=== PATIENT | male | born 1980 | race Caucasian/White ===

== ENCOUNTER 2024-05-29 07:28 | Observation (INO) ==
--- NOTE | 2024-05-29 07:34 | Emergency Department Note ---
History of Present Illness General Chief complaint: Abdominal Pain Stated complaint: RIGHT SIDED ABDOMINAL PAIN Time Seen by Provider: 05/29/24 07:33 History of Present Illness This is a 44-year-old male who presents to the emergency department via private vehicle with complaints of "right-sided abdominal pain". Patient states that last evening around 5:30 PM he began with right lower quadrant abdominal pain. He then went to dinner and noted continuation of symptoms. He has a decreased appetite. Patient denies any fevers, chills, nausea or vomiting. No chest pain or shortness of breath. Patient does note that when he presses the right lower quadrant the pain increases and also he notes referred pain to the right lower quadrant when he palpates the left lower quadrant. The patient states he is otherwise healthy. He denies any pertinent past medical history, surgeries or allergies. No history of abdominal surgeries. Home Medications Medication Instructions Recorded Confirmed Type cholecalciferol (vitamin D3) 25 25 mcg PO DAILY 05/29/24 05/29/24 History mcg (1,000 unit) tablet (Vitamin D3) Allergies Allergy/AdvReac Type Severity Reaction Status Date / Time No Known Allergies Allergy Unverified 05/29/24 09:35 Past Med/Surg History Problem List Abdominal pain, RLQ (Acute) Acute appendicitis (Acute) No pertinent past medical history Social History Smoking Status: Never smoker Preferred Language: [place] Feels Safe at Home: Yes Review of Systems A total of 10 systems reviewed and were otherwise negative Physical Exam Vital Signs Vital Signs - 24 hr 05/29/24 07:39 05/29/24 11:04 05/29/24 11:32 Temperature 37.3 C 37.3 C Temperature Source Oral Oral Pulse Rate 105 H Pulse Rate [Apical] 83 Pulse Rate [Left Finger] 90 Pulse Rhythm Regular Pulse Rhythm [Apical] Regular Pulse Rhythm [Left Finger] Regular Pulse Strength Normal Pulse Strength [Apical] Normal Pulse Strength [Left Finger] Normal Respiratory Rate 18 18 20 Respiratory Effort / Characteristics Non-Labored Spontaneous Non-Labored Non-Labored Respiratory Depth Normal Normal Normal Respiratory Pattern Regular Regular Regular Blood Pressure 170/105 H Blood Pressure [Right Arm] 148/92 H 173/105 H Blood Pressure Mean 126 Blood Pressure Mean [Right Arm] 110 127 Blood Pressure Position Sitting Blood Pressure Position [Right Arm] Sitting Pulse Oximetry 93 98 98 Oxygen Delivery Method Room Air Room Air Room Air Oxygen Flow Rate Sepsis Recent Fever Within 48 Hours No Sepsis New/Unexplained Change in Mental Status No Sepsis Action Taken by Nursing No Action Required 05/29/24 13:06 05/29/24 13:15 05/29/24 13:25 Temperature 36.4 C L Temperature Source Temporal Artery Scan Pulse Rate Pulse Rate [Apical] 94 H 91 H 83 Pulse Rate [Left Finger] Pulse Rhythm Pulse Rhythm [Apical] Regular Regular Regular Pulse Rhythm [Left Finger] Pulse Strength Pulse Strength [Apical] Pulse Strength [Left Finger] Respiratory Rate 17 13 13 Respiratory Effort / Characteristics Non-Labored Non-Labored Non-Labored Respiratory Depth Normal Normal Normal Respiratory Pattern Regular Regular Regular Blood Pressure Blood Pressure [Right Arm] 150/81 H 145/92 H 139/76 Blood Pressure Mean Blood Pressure Mean [Right Arm] 104 109 97 Blood Pressure Position Blood Pressure Position [Right Arm] Sitting Sitting Sitting Pulse Oximetry 95 96 95 Oxygen Delivery Method Room Air Oxymask Room Air Oxygen Flow Rate 2 0 Sepsis Recent Fever Within 48 Hours Sepsis New/Unexplained Change in Mental Status Sepsis Action Taken by Nursing 05/29/24 13:35 05/29/24 13:45 05/29/24 14:00 Temperature 36.7 C Temperature Source Temporal Artery Scan Pulse Rate Pulse Rate [Apical] 82 83 78 Pulse Rate [Left Finger] Pulse Rhythm Pulse Rhythm [Apical] Regular Regular Regular Pulse Rhythm [Left Finger] Pulse Strength Pulse Strength [Apical] Pulse Strength [Left Finger] Respiratory Rate 12 12 13 Respiratory Effort / Characteristics Non-Labored Non-Labored Non-Labored Respiratory Depth Normal Normal Normal Respiratory Pattern Regular Regular Regular Blood Pressure Blood Pressure [Right Arm] 144/88 H 146/75 H 134/81 Blood Pressure Mean Blood Pressure Mean [Right Arm] 106 98 98 Blood Pressure Position Blood Pressure Position [Right Arm] Sitting Sitting Sitting Pulse Oximetry 97 95 96 Oxygen Delivery Method Room Air Room Air Room Air Oxygen Flow Rate 0 0 0 Sepsis Recent Fever Within 48 Hours Sepsis New/Unexplained Change in Mental Status Sepsis Action Taken by Nursing 05/29/24 14:15 05/29/24 14:30 05/29/24 14:40 Temperature Temperature Source Pulse Rate Pulse Rate [Apical] 76 75 75 Pulse Rate [Left Finger] Pulse Rhythm Pulse Rhythm [Apical] Regular Regular Regular Pulse Rhythm [Left Finger] Pulse Strength Pulse Strength [Apical] Pulse Strength [Left Finger] Respiratory Rate 13 14 15 Respiratory Effort / Characteristics Non-Labored Non-Labored Non-Labored Respiratory Depth Normal Normal Normal Respiratory Pattern Regular Regular Regular Blood Pressure Blood Pressure [Right Arm] 139/83 140/90 149/87 H Blood Pressure Mean Blood Pressure Mean [Right Arm] 101 106 107 Blood Pressure Position Blood Pressure Position [Right Arm] Sitting Sitting Sitting Pulse Oximetry 94 94 92 Oxygen Delivery Method Room Air Room Air Room Air Oxygen Flow Rate 0 0 0 Sepsis Recent Fever Within 48 Hours Sepsis New/Unexplained Change in Mental Status Sepsis Action Taken by Nursing 05/29/24 14:50 Temperature Temperature Source Pulse Rate Pulse Rate [Apical] 79 Pulse Rate [Left Finger] Pulse Rhythm Pulse Rhythm [Apical] Regular Pulse Rhythm [Left Finger] Pulse Strength Pulse Strength [Apical] Pulse Strength [Left Finger] Respiratory Rate 14 Respiratory Effort / Characteristics Non-Labored Respiratory Depth Normal Respiratory Pattern Regular Blood Pressure Blood Pressure [Right Arm] 137/84 Blood Pressure Mean Blood Pressure Mean [Right Arm] 101 Blood Pressure Position Blood Pressure Position [Right Arm] Sitting Pulse Oximetry 94 Oxygen Delivery Method Room Air Oxygen Flow Rate 0 Sepsis Recent Fever Within 48 Hours Sepsis New/Unexplained Change in Mental Status Sepsis Action Taken by Nursing VITAL SIGNS - Vital signs and nursing notes were reviewed. Stable and afebrile. GENERAL - 44-year-old male appearing his stated age who is in no acute distress. Communicates well with provider and answers questions appropriately. SKIN - Without rashes. No meningeal or petechial rash. HEAD - NC/AT. EYES - PERRL with EOMI bilaterally. Sclera anicteric. NECK - No nuchal rigidity. LUNGS - CTA CARDIAC - RRR ABDOMEN - Abdominal contour normal without pulsations or visible masses. BS normoactive all four quadrants. There is right lower quadrant abdominal tenderness to McBurney's point. Overall benign abdominal examination. Non rigid abdomen. EXTREMITIES - patient is able to stand, ambulate independently. NEUROLOGIC - Cranial nerves grossly intact. PSYCH -alert, oriented and pleasant on exam Course Administered Medications Cefoxitin Sodium 2,000 mg/ (Dextrose) 50 mls @ 100 mls/hr IV TODAY@1100 SERENA; Protocol Stop: 05/30/24 10:59 Last Admin: 05/29/24 12:12 Dose: 100 mls/hr Documented By: EMERSON Lactated Ringer's (Lr) 1,000 mls @ 15 mls/hr IV .Q24H SERENA Stop: 05/30/24 12:14 Last Admin: 05/29/24 12:08 Dose: 15 mls/hr Documented By: TDM Discontinued Medications Bupivacaine HCl/Epinephrine Bitart (Bupivacaine/Epinephrine 0.5% Mpf 1:200,000 30 Ml Vial) Confirm Administered Dose 30 ml .ROUTE .STK-MED ONE Stop: 05/29/24 12:09 Last Admin: 05/29/24 12:47 Dose: 25 ml Documented By: ARNALDO Sodium Chloride (Nss) 1,000 mls @ 999 mls/hr IV .Q1H1M ONE Stop: 05/29/24 10:31 Last Infusion: 05/29/24 12:07 Dose: Infused Documented By: Admin: 05/29/24 11:06 Dose: 999 mls/hr Documented By: SRJian Ioversol (Optiray 320 100ml) 94 ml IV ONCE ONE Stop: 05/29/24 09:08 Last Admin: 05/29/24 09:07 Dose: 94 ml Documented By: BRAYAN Medical Decision Making Laboratory Data 05/29/24 08:19 05/29/24 08:19 Lab Results 05/29/24 05/29/24 Range/Units 08:14 08:19 WBC 12.88 H (4.8-10.8) K/ul RBC 5.86 (4.70-6.10) M/uL Hgb 16.5 (14.0-18.0) g/dl Hct 47.1 (42.0-52.0) % MCV 80.4 (80.0-100.0) fL MCH 28.2 (25.0-34.0) pg MCHC 35.0 (32.0-36.0) g/dL RDW Std Deviation 34.6 L (36.4-46.3) fL RDW Coeff of Soha 11.9 (11.5-14.5) % Plt Count 284 (130-400) K/uL MPV 9.4 (9.4-12.4) fL Immature Gran % (Auto) 0.5 % Neut % (Auto) 80.5 % Lymph % (Auto) 10.6 % [place] % (Auto) 7.0 % Eos % (Auto) 0.9 % Baso % (Auto) 0.5 % Neut # (Auto) 10.38 H (1.40-6.50) K/uL Lymph # (Auto) 1.36 (1.20-3.40) K/uL [place] # (Auto) 0.90 H (0.11-0.59) K/uL Eos # (Auto) 0.12 (0.00-0.50) K/uL Baso # (Auto) 0.06 (0.00-0.20) K/uL Immature Gran # (Auto) 0.06 (0.01-0.20) K/uL Sodium 138 (136-145) mmol/L Potassium 4.1 (3.5-5.1) mmol/L Chloride 105 (98-107) mmol/L Carbon Dioxide 27 (21-32) mmol/L Anion Gap 6 (3-11) BUN 13 (6-23) mg/dl Creatinine 0.94 (0.6-1.4) mg/dl Est Cr Clr Drug Dosing 139.1 ml/min eGFR 101.25 BUN/Creatinine Ratio 13.8 (10-20) Glucose 103 H (70-99(Fasting)) mg/dl Calcium 9.3 (8.6-10.3) mg/dl Total Bilirubin 1.9 H (0.2-1.0) mg/dl AST 19 (13-39) U/L ALT 25 (7-52) U/L Alkaline Phosphatase 80 (34-104) U/L Total Protein 7.6 (6.0-8.3) gm/dl Albumin 4.3 (3.4-5.0) gm/dl Globulin 3.3 (2.5-4.0) gm/dl Albumin/Globulin Ratio 1.3 (0.9-2) Lipase 27 (11-82) U/L Urine Color Yellow Urine Appearance Clear (Clear) Urine pH 6.5 (4.5-7.5) Ur Specific [place] 1.021 (1.000-1.030) Urine Protein Negative (Negative) Urine Glucose (UA) Negative (Negative) Urine Ketones Negative (Negative) Urine Blood Negative (Negative) Urine Nitrite Negative (Negative) Urine Bilirubin Negative (Negative) Urine Urobilinogen Negative (Negative) Ur Leukocyte Esterase Negative (Negative) Imaging Data Radiologist's Impression: Abdomen/Pelvis CT 05/29/24 07:50 CT OF THE ABDOMEN AND PELVIS WITH CONTRAST CLINICAL HISTORY: Right lower quadrant abdominal pain. COMPARISON STUDY: None. TECHNIQUE: Following IV administration of 94 mL of Optiray, axial images of the abdomen and pelvis were obtained from the lung bases to the proximal femurs. Images were reviewed in the axial, sagittal, and coronal planes. IV contrast was administered without complication. Automated exposure control was utilized for the study. A dose lowering technique was utilized adhering to the principles of ALARA. CT DOSE: 1605.89 mGy.cm FINDINGS: Lung bases are unremarkable. No pneumatosis, free air or portal venous gas is present. Liver, spleen, adrenal glands, kidneys and pancreas are normal. There is no biliary or pancreatic ductal dilatation. There is no hydronephrosis. There is no evidence for a bowel obstruction. The mid to distal appendix is dilated, measuring 1 cm in caliber. There is appendiceal wall thickening with mild periappendiceal stranding. No free air or abscess. No additional sites of inflammation are identified. There is no lymphadenopathy. Major vasculature is patent. There are no fluid collections. IMPRESSION: Findings suggest acute appendicitis. Dilated appendix with appendiceal wall thickening and mild periappendiceal inflammation. No free air or abscess. ACT 112: Negative or not required by law. Electronically signed by: Byron Kuhn M.D. 05/29/2024 9:23 AM MDM Narrative Patient was seen and evaluated as above in room D02. Review was performed of triage nursing notes and vital signs. Patient presents for evaluation of right lower quadrant abdominal pain and decreased appetite. Pain began last evening around 5:30 PM. On assessment patient is tender in the right lower quadrant. IV access with established. Labs are drawn. Will proceed with CT scan of the abdomen/pelvis. Patient will be n.p.o. at this time pending findings. Laboratory studies reveal leukocytosis 12.88 with left shift. No emergent metabolic disturbance. Hyperglycemia 103. Hyperbilirubinemia 1.9. Lipase normal. Urinalysis does not suggest infection, no blood in the urine. CT scan of the abdomen/pelvis is as above per radiology. I also reviewed the imaging. Acute appendicitis noted. 9:43am-I spoke with Kasandra Smalls PA-C with general surgery. Plan is operative intervention. They will order the antibiotics preoperatively. I did order IV fluids. Please refer to further documentation regarding his stay. In the evaluation and treatment of this patient the following differential diagnoses were entertained: UTI, pyelonephritis, kidney stone, diverticulitis, appendicitis, among others Impression & Plan Acute appendicitis, Abdominal pain, RLQ Discharge Plan Visit Data Chief Complaint: Abdominal Pain Stated Complaint: RIGHT SIDED ABDOMINAL PAIN ED Provider: Andrea Brewer ED Midlevel Provider: Klaus Segundo Discharge Problem: Acute appendicitis, Abdominal pain, RLQ Patient Disposition: Being Evaluated by Surgeon Condition: Good Forms Stand Alone Forms: My [facility] Prescriptions Prescriptions: No Action cholecalciferol (vitamin D3) [Vitamin D3] 25 mcg (1,000 unit) Tablet 25 mcg PO DAILY Referrals Referrals: Shan Lamar MD [Primary Care Provider] -
--- OUTSIDE RECORDS SUMMARY | 2024-05-29 07:38 | External Medical Summary | Summary of Care ---
Author Name Unknown Organization [facility] Address [address] [place] [address] Phone [phone] Care Team Providers Care Senior Oracle Pl Sql Developer Name Role Phone Willard HILL MD, John E Primary Care Provider [phone] Reason for Visit * Reason Comments Physical-Exam Encounter Details Date Type Department Care Team (Latest Contact Info) Description 04/03/2024 11:40 AM EST Office Visit Family Practice [facility] [address] [facility] [place] [address] Shan Lamar III, MD [address] [facility] [address] Routine medical exam*; Screening for cardiovascular condition; Screening for diabetes mellitus Allergies No known active allergiesdocumented as of this encounter (statuses as of 04/08/2024) Medications Vitamin D 50 MCG (1999 UT) Oral Tablet Take 2,000 Units by mouth in the morning. Active documented as of this encounter (statuses as of 04/08/2024) Active Problems No known active problems documented as of this encounter (statuses as of 04/08/2024) Immunizations Name Administration Dates Next Due COVID-19 mRNA, LNP-s, No Pre serve, 2-Dose Series (TidalScale) 02/19/2023,02/24/2022,04/05/2021,2020,08/07/2020 Seasonal Influenza Virus Vac cine, Unspecified Formulation 04/18/2018 Seasonal Influenza, PF, 6 M & above, IM , (FluLaval or Fluzone) 02/19/2023,02/24/2022,03/16/2021,2019,03/08/2019 Seasonal Influenza, Quadriva lent, No Preserve, IM 02/17/2024 TDAP (age 10 and older)(Boostrix) 03/08/2019 documented as of this encounter Social History Tobacco Use Types Packs/Day Years Used Date Smoking Tobacco: Never Smokeless Tobacco: Former Alcohol Use Standard Drinks/Week Comments Yes 0 (1 standard drink = 0.6 oz pur e alcohol) occasional PHQ-2 Answer Date Recorded PHQ-2 Score 0 04/02/2018 Hunger Vital Sign Answer Date Recorded Within the past 12 months, y ou worried that your food would run out before you got the money to buy more. Never true 04/03/20 24 Within the past 12 months, t he food you bought just didn't last and you didn't have money to get more. Never true 04/03/2024 Childcare Answer Date Recorded Do you feel overwhelmed with taking care of a child, family member or friend? No 04/03/2024 Does your family need help f inding childcare? (Household - for ages 0-17 years) Not on file 04/03/2024 Clothing Answer Date Recorded Have you been unable to get clothing when it was really needed? No 04/03/2024 Is your family able to get c lothes or diapers when needed? (Household - for ages 0-17 years) Not on file 04/03/2024 Personal Safety Answer Date Recorded Do you feel unsafe or have concerns for your saf ety? No 04/03/2024 Do you have concerns for you r family's safety? (Household - for ages 0-17 years) Not on file 04/03/2024 Utilities Answer Date Recorded Do you have trouble paying y our heating, water, or electric bill? No 04/03/2024 Is your family able to pay t he heat, water, or electric bill? (Household - for ages 0-17 years) Not on file 04/03/2024 Does your family have access to good internet? (Household - for ages 0-17 years) Not on file 04/03/2024 Employment Status Answer Date Recorded Are you unemployed or without regular income? No 04/03/2024 Does the household have a re gular source of income? (Household - for ages 0-17 years) Not on file 04/03/2024 Social Connections Answer Date Recorded How often do you feel lonely or isolated from th ose around you? Never 04/03/2024 Financial Resource Strain Answer Date R ecorded Do you have any trouble payi ng for your medications, or do you think you might in the future? No 04/03/2024 Does your family have troubl e paying for medicine? (Household - for ages 0-17 years) Not on file 04/03/2024 Transportation Needs Answer Date Record ed Do you have trouble getting a ride to medical visits or work? (Adult - for ages 18 years and over) Not on file 04/03/2024 Does your family have a hard time getting a ride to doctors visits? (Household - for ages 0-17 years) Not on file 04/03/2024 Has lack of transportation k ept you from medical appointments, meetings, work, or from getting things needed for daily living? Check all that apply. No 04/03/2024 Do you (or your family) have trouble finding or paying for a ride (transportation)? (Household - for ages 0-17 years) Not on file 04/03/2024 Housing Stability Answer Date Recorded Do you currently live in a s helter or have no steady place to sleep at night? No 04/03/2024 Do you think you are at risk of becoming homeless? (Adult - for ages 18 years and over) Not on file 04/03/2024 Does your family worry about paying for your home or becoming homeless? (Household - for ages 0-17 years) Not on file 1 06/03/2023 Are you homeless or worried that you might be in the future? No 04/03/2024 Are you (or your family) felisha eless or worried that you might be in the future? (Household - for ages 0-17 years) Not on file Food Insecurity Answer Date Recorded Do you need food for this week? No 04/03/2024 Are you able to get enough f ood for your family? (Household - for ages 0-17 years) Not on file 04/03/2024 Does your family need food t his week? (Household - for ages 0-17 years) Not on file 04/03/2024 Do you always have enough fo od for your family? (Household - for ages 0-17 years) Not on file 04/03/2024 Sex and Gender Information Value Date Recorded Sex Assigned at Male 11/25/2022 9:23 AM EDT Legal Sex Male 5:41 AM EST Gender Identity Male 11/25/2022 9:23 AM EDT Sexual Orientation Straight 11/25/2022 9: 23 AM EDT documented as of this encounter Last Filed Vital Signs Vital Sign Reading Time Taken Comments Blood Pressure 133/75 04/03/2024 11:37 AM EST Pulse 82 04/03/2024 11:37 AM EST Temperature 37.4 C (99.3 F) 04/03/2024 11:[address] Respiratory Rate - - Oxygen Saturation - - Inhaled Oxygen Concentration - - Weight 125.6 kg (277 lb) 04/03/2024 11:37 AM EST Height 189 cm (6' 2.41") 04/03/2024 11:37 AM EST Body Mass Index 35.17 04/03/2024 11:37 AM EST documented in this encounter Progress Notes * Lancaster IIIShan MD - 04/08/2024 9:51 AM EST Images from the original note were not included. History of Present Illness Moise Branch is a 44 year old male that presents for Physical-Exam Feeling well no particular issues or concerns sees dentist no change in vision no hearing concerns no swallowing difficulties no exertional chest pain shortness of breath claudication or swelling no lumps or swelling in the groin area no dysuria or hematuria Physical Exam Vitals: 04/03/24 1137 Temp: 37.4 C (99.3 F) Pulse: 82 BP: 133/75 BMI: 35.17 BP Readings from Last 3 Encounters: 04/03/24 133/75 03/18/23 120/74 03/17/22 120/74 Wt Readings from Last 3 Encounters: 04/03/24 125.6 kg (277 lb) 03/18/23 122.1 kg (269 lb 3.2 oz) 07/27/22 121.3 kg (267 lb 6.4 oz) General: alert, healthy, and no distress Eye Exam: PERRLA, extraocular movements intact, conjunctiva are pink and non- injected, sclera clear Ears: External ears normal, Canals clear, TM's Normal Oropharynx: no exudate, no erythema, lips, buccal mucosa, and tongue normal, and mucous membranes are moist Neck: supple, no adenopathy, no bruits, thyroid normal size, non-tender, without nodularity Heart: regular rate & rhythm, no murmur, and no gallops Lungs: lungs clear to auscultation Pulses: carotid=2/4 w/o bruits Abdomen: abdomen soft, non-tender, normal bowel sounds, and no masses or organomegaly Extremities: no edema, no clubbing, no cyanosis Neuro Exam: alert & oriented x 3 with fluent speech, reflexes normal and symmetric Exam (Male): no abnormalities of scrotal contents, no hernia detected Rectal: prostate and seminal vesicles non-tender without nodules I have reviewed the following results: None Assessment and Plan Routine medical exam Screening for cardiovascular disease Screening for diabetes mellitus lipid panel and fasting sugar ordered Wrap-Up Sun protection discussed Time: I spent a total of 20-29 minutes (exact time mins) on the date of service in preparation, delivery,and documentation of the care provided to [facility] excluding any time spent in the performanceof separately billed services. documented in this encounter Nursing Notes * Keke Gong RN - 04/03/2024 11:46 AM EST Pt biked from [facility]. documented in this encounter Plan of Treatment Health Maintenance Due Date Last Done Comments Hepatitis B Vaccine (1 of 3 - 19+ 3-dose series) 1997 Depression Screening 08/12/2018 08/12/2017 Colonoscopy 2023 Fecal Occult Blood Test 2023 Sigmoidoscopy 2023 COVID-19 Vaccine ( season) 2024 02/19/2023, 02/24/2022, 04/05/2021, Additional history exists Cologuard 04/12/2026 04/12/2023, 10/2022, 04/04/2023 Colorectal Cancer Screening 04/12/2026 Diabetes Screening 04/03/2027 04/03/2024, 1 , 08/16/2017 DTap/Tdap Vaccines (2 - Td or Tdap) 03/08/2029 03/08/2019 Lipid Panel 04/03/2029 04/03/2024, 02/28, 08/16/2017 Influenza Vaccine (FLU shot) Completed , 02/19/2023, 02/24/2022, Additional history exists HPV (Gardasil) Vaccine Aged Out No lo nger eligible based on patient's age to complete this topic MENINGOCOCCAL (MENACTRA/MENVEO) Aged Out No longer eligible based on patient's age to complete this topic Pneumococcal Vaccine: Pediatrics (0 to 5 Years) and At-Risk Patients (6 to 64 Years) Aged Out No longer eligible based on patient's age to complete this topic documented as of this encounter Medical Devices Not on filedocumented as of this encounter Results * (ABNORMAL) LIPID PANEL WITH DIRECT LDL IF TG IS HIGH (04/03/2024 12:10 PM EST) Triglycerides 79 <=174 mg/dL 04/03/2024 8:24 PM EST LAB[facility] Comment: Triglyceride Reference Ranges (mg/dL): <150 Acceptable 150-174 Borderline high 175-499 High >=500 Very high Cholesterol 227(H) <200 mg/dL 04/03/2024 8:24 PM EST [facility] Comment: Total Cholesterol Reference Ranges (mg/dL): <200 Desirable 200-239 Borderline high >=240 High HDL Cholesterol 39(L) >39 mg/dL 8:24 PM EST [facility] Comment: HDL Cholesterol Reference Ranges (mg/dL): >=60 High (Desirable) <50 Low (Undesirable) For Females <40 Low (Undesirable) For Males Non-HDL Cholesterol 188(H) <=159 mg/dL 04/03/2024 8:24 PM EST [facility] Comment: Non-HDL Cholesterol Reference Range (mg/dL): <100 Target level for high risk ASCVD patient <130 Optimal for general population 130-159 Near optimal for general population 160-189 Borderline High 190-219 High >=220 Very High LDL Cholesterol 172(H) <=129 mg/dL 04/03/2024 8:24 PM EST LABORATORY [facility] Comment: LDL Cholesterol Reference Ranges (mg/dL): <70 Target level for high risk ASCVD patient <100 Optimal for general population 100-129 Near optimal for general population 130-159 Borderline high 160-189 High >=190 Very high Blood Venous blood specimen / Unknown Venipuncture / Unknown 04/03/2024 12:10 PM EST 04/03/2024 12:10 PM EST us Shan Lamar III, MD LAB BLOOD ORDERABLES Final Result [facility] [address] [place] [address] * GLUCOSE (04/03/2024 12:10 PM EST) GLUCOSE 86 70 - 120 mg/dL 04/03/2024 1:38 PM EST [facility] 56-02 Blood Venous blood specimen / Unknown Venipuncture / Unknown 04/03/2024 12:10 PM EST 04/03/2024 12:10 PM EST Shan Lamar III, MD LAB BLOOD ORDERABLES Final Result [facility] 56-[address] [place] [address] documented in this encounter Visit Diagnoses Diagnosis Routine medical exam- Primary Routine general medical examination at a health care facility Screening for cardiovascular condition Screening for other and unspecified cardiovascular conditions Screening for diabetes mellitus documented in this encounter Care Teams Senior Oracle Pl Sql Developer Relationship Specialty Start Date End Date Shan Lamar III, MD [address] [facility] [place] [address] PCP - General Family Medicine 06/05/18 documented as of this encounter
--- OUTSIDE RECORDS SUMMARY | 2024-05-29 07:38 | External Medical Summary ---
Author Name Unknown Address Unknown Organization [id number]:[facility] [place] [address] Laboratory Report Ordering Provider Test Date Status LAURENT WOODRUFF III 04/03/2024 12:10:09 Final Observation Date Value Abnormality Reference (Units ) Status Glucose 04/03/2024 12:10:09 86 70-120 (mg /dL) Final Performing Location [facility] [place] [address]
--- OUTSIDE RECORDS SUMMARY | 2024-05-29 07:38 | External Medical Summary ---
Author Name Unknown Address Unknown Organization [id number]:[facility] [address] [place] [address] Laboratory Report Ordering Provider Test Date Status LAURENT WOODRUFF III 04/03/2024 12:10:09 Final Observation Date Value Abnormality Reference (Units ) Status Triglyceride 04/03/2024 12:10:09 79 <=174 ( mg/dL) Final Triglyceride Reference Range s (mg/dL):
<150 Acceptable
150-174 Borderline high
175-499 High
>=500 Very high Cholesterol 04/03/2024 12:10:09 227 Above high normal <200 (mg/dL) Final Total Cholesterol Reference Ranges (mg/dL):
<200 Desirable
200-239 Borderline high
>=240 High HDL 04/03/2024 12:10:09 39 Below low normal >39 (mg/dL) Final HDL Cholesterol Reference Ra nges (mg/dL):
>=60 High (Desirable)
<50 Low (Undesirable) For Females
<40 Low (Undesirable) For Males NON-HDL CHOLESTEROL 04/03/2024 12:10:09 188 Above high normal <=159 (mg/dL) Final Non-HDL Cholesterol Referenc e Range (mg/dL):
<100 Target level for high risk ASCVD patient
<130 Optimal for general population
130-159 Near optimal for general population
160-189 Borderline High
190-219 High
>=220 Very High LDL, (calculated) 04/03/2024 12:10:09 172 Above high n ormal <=129 (mg/dL) Final LDL Cholesterol Reference Ra nges (mg/dL):
<70 Target level for high risk ASCVD patient
<100 Optimal for general population
100-129 Near optimal for general population
130-159 Borderline high
160-189 High
>=190 Very high Performing Location LAB[facility]ATORY [facility] - [address] [facility] [address]
--- OUTSIDE RECORDS SUMMARY | 2024-05-29 07:38 | External Medical Summary ---
Author Name Unknown Address Unknown Organization [id number]:[facility]ATORY [facility] [place] [address] [facility] [place] [address] Laboratory Report Ordering Provider Test Date Status MARIKA MUNSON 04/03/2024 12:10:09 Final Observation Date Value Abnormality Reference (Units ) Status MYCODE SPECIMEN-SST 04/03/2024 12:10:09 Freezing of extracted DNA, whole blood and/or serum. Final Performing Location [facility] - [address] [place] [address]
--- OUTSIDE RECORDS SUMMARY | 2024-05-29 07:38 | External Medical Summary | Summary of Care ---
Author Name Unknown Organization [facility] Address [address] [place] [address] Phone [phone] Care Team Providers Care Bridge Painter Helper Name Role Phone Willard HILL MD, Shan Heard Primary Care Provider [phone] Encounter Details Date Type Department Care Team (Late st Contact Info) Description 04/09/2024 Orders Only Outcomes Research Department [address] [place] [address] Angela Cabezas CHRA [employer] [facility] Other*[id number] Allergies No known active allergiesdocumented as of this encounter (statuses as of 04/09/2024) Medications Vitamin D 50 MCG (1999) Oral Tablet Take 2,000 Units by mouth in the morning. Active documented as of this encounter (statuses as of 04/09/2024) Active Problems No known active problems documented as of this encounter (statuses as of 04/09/2024) Immunizations Name Administration Dates Next Due COVID-19 mRNA, LNP-s, No Pre serve, 2-Dose Series ([employer]) 02/19/2023,02/24/2022,04/05/2021,2020,08/07/2020 Seasonal Influenza Virus Vac cine, Unspecified [...] AM EDT documented as of this encounter Plan of Treatment Scheduled Orders Name Type Priority Associated Diagnoses Orde r Schedule MYCODE SUBSEQUENT ADULT Lab Routine [employer] Other*[id number] Every 6 Months for 2 Occurrences starting 04/09/2024 until 04/29/2025 Health Maintenance Due Date Last Done Comments Hepatitis B Vaccine (1 of 3 - 19+ 3-dose series) 1997 Depression Screening 08/12/2018 08/12/2017 Colonoscopy 2023 Fecal Occult Blood Test 2023 Sigmoidoscopy 2023 COVID-19 Vaccine ( season) 2024 02/19/2023, 02/24/2022, 04/05/2021, Additional history exists Cologuard 04/12/2026 04/12/2023, 1110/2022, 04/04/2023 Colorectal Cancer Screening 04/12/2026 Diabetes Screening 04/03/2027 04/03/2024, 1 , 08/16/2017 DTap/Tdap Vaccines (2 - Td or Tdap) 03/08/2029 03/08/2019 Lipid Panel 04/03/2029 04/03/2024, 1010/2021, 08/16/2017 Influenza Vaccine (FLU shot) Completed , [...] Not on filedocumented as of this encounter Visit Diagnoses Diagnosis [employer] Other*[id number] documented in this encounter Care Teams Bridge Painter Helper Relationship Specialty Start Date End Date Shan Lamar III, MD [address] [facility] [place] [address] PCP - General Family Medicine 06/05/18 documented as of this encounter
--- OUTSIDE RECORDS SUMMARY | 2024-05-29 07:38 | External Medical Summary ---
Author Name Unknown Address Unknown Organization [id number]:LABORATORY [facility] [place] - [address] [place] [facility] [place] [address] Laboratory Report Ordering Provider Test Date Status MARIKA MUNSON 04/03/2024 12:10:09 Final Observation Date Value Abnormality Reference (Units ) Status [employer]ODE SPECIMEN-LAV 04/03/2024 12:10:09 Freezing of extracted DNA, whole blood and/or serum. Final Performing Location [facility] - [address] [place] [address]
--- OUTSIDE RECORDS SUMMARY | 2024-05-29 07:38 | External Medical Summary ---
Author Name Unknown Address Unknown Organization K01:[facility] [place] [address] [place] [facility] [place] [address] Laboratory Report Ordering Provider Test Date Status MARIKA MUNSON 04/03/2024 12:10:09 Final Observation Date Value Abnormality Reference (Units ) Status MYCODE SPECIMEN-SST 04/03/2024 12:10:09 Freezing of extracted DNA, whole blood and/or serum. Final Performing Location [facility] - [address] [place] [address]
[2024-05-29 08:53] LABS: Basophils # (auto) 0.06 K/uL (0.00-0.20); Basophils % (auto) 0.5 %; Eosinophils # (auto) 0.12 K/uL (0.00-0.50); Eosinophils % (auto) 0.9 %; Hematocrit (blood only) 47.1 % (42.0-52.0); Hemoglobin 16.5 g/dl (14.0-18.0); Immature Granulocytes # (auto) 0.06 K/uL (0.01-0.20); Immature Granulocytes % (auto) 0.5 %; Lymphocytes # (auto) 1.36 K/uL (1.20-3.40); Lymphocytes % (auto) 10.6 %; Mean Corpuscular Hemoglobin 28.2 pg (25.0-34.0); Mean Corpuscular Volume 80.4 fL (80.0-100.0); Mean Platelet Volume 9.4 fL (9.4-12.4); Neutrophils # (auto) 10.38 K/uL (1.40-6.50); Neutrophils % (auto) 80.5 %; Platelet Count 284 K/uL (130-400); RDW Coefficient of Variation 11.9 % (11.5-14.5); RDW Standard Deviation 34.6 fL (36.4-46.3); Red Blood Count 5.86 M/uL (4.70-6.10); White Blood Count 12.88 K/ul (4.8-10.8)
[2024-05-29 08:55] LABS: Albumin Globulin Ratio 1.3 (0.9-2); Albumin Level 4.3 gm/dl (3.4-5.0); BUN Creatinine Ratio 13.8 (10-20); Bilirubin,Total 1.9 mg/dl (0.2-1.0); Calcium 9.3 mg/dl (8.6-10.3); Creatinine Clr Calc Pharmacy 139.1 ml/min; Globulin 3.3 gm/dl (2.5-4.0); Potassium 4.1 mmol/L (3.5-5.1); Total Protein 7.6 gm/dl (6.0-8.3)
[2024-05-29 08:58] LABS: Appearance Urine Clear (Clear); Bilirubin Urine Negative (Negative); Blood Urine Negative (Negative); Color Urine Yellow; Glucose Urine UA Negative (Negative); Ketones Urine Negative (Negative); Leukocyte Esterase Urine Negative (Negative); Nitrite Urine Negative (Negative); Protein Urine Negative (Negative); Specific Gravity Urine 1.021 (1.000-1.030); Urobilinogen Urine Negative (Negative); pH Urine 6.5 (4.5-7.5)
[2024-05-29] MEDS: OPTIRAY 320 100ml IV ONE (09:07)
--- NOTE | 2024-05-29 09:25 | CT Scan Report ---
CT OF THE ABDOMEN AND PELVIS WITH CONTRAST CLINICAL HISTORY: Right lower quadrant abdominal pain. COMPARISON STUDY: None. TECHNIQUE: Following IV administration of 94 mL of Optiray, axial images of the abdomen and pelvis we re obtained from the lung bases to the proximal femurs. Images were reviewed in the axial, sagittal, and coronal planes. IV contrast was administered without complication. Automated exposure control wa s utilized for the study. A dose lowering technique was utilized adhering to the principles of ALARA . CT DOSE: 1605.89 mGy.cm FINDINGS: Lung bases are unremarkable. No pneumatosis, free air or portal venous gas is present. Live r, spleen, adrenal glands, kidneys and pancreas are normal. There is no biliary or pancreatic ductal dilatation. There is no hydronephrosis. There is no evidence for a bowel obstruction. The mid to dist al appendix is dilated, measuring 1 cm in caliber. There is appendiceal wall thickening with mild per iappendiceal stranding. No free air or abscess. No additional sites of inflammation are identified. T here is no lymphadenopathy. Major vasculature is patent. There are no fluid collections. IMPRESSION: Findings suggest acute appendicitis. Dilated appendix with appendiceal wall thickening an d mild periappendiceal inflammation. No free air or abscess. ACT 112: Negative or not required by law. Electronically signed by: Byron Kuhn M.D. 05/29/2024 9:23 AM
--- NOTE | 2024-05-29 10:53 | History & Physical Report ---
Date of Service May 29, 2024 Assessment & Plan (1) Acute appendicitis: Plan Mr Branch is a 44 yo male who presented to ed with 12 hour history of right lower abdominal pain . CT scan with acute uncomplicated appendicitis. leukocytosis of 12k. Afebrile. Abdomen soft, positive Mcburney's point and tenderness in RLQ but no peritonitis. Discussed laparoscopic appendectomy, risks, and expected recovery and restrictions. Informed consent obtained. Keep NPO. IV fluids and iV Cefoxitin. Will take to operating room for laparoscopic appendectomy at earliest convenience. Dr. Welch has seen and examined patient, agrees with above. History of Present Illness Chief Complaint: abdominal pain Primary Care Provider: Shan Lamar MD Mr. Branch is a 44 yo male otherwise healthy who presented to ED with complaint of right lower abdominal pain that started around 5:30 pm and continued to increase in severity with associated nauea but no vomiting, fevers, chills, chest pain or shortness of breath. No changes in bowel habits, urinating without difficulty. [place] it was some gas but didnt improve and was unable to sleep due to pain. Movement made pain worse. No prior history of similar pain. No abdominal surgeries. Allergies Allergy/AdvReac Type Severity Reaction Status Date / Time No Known Allergies Allergy Unverified 05/29/24 09:35 Home Medications Medication Instructions Recorded Confirmed Type cholecalciferol (vitamin D3) 25 25 mcg PO DAILY 05/29/24 05/29/24 History mcg (1,000 unit) tablet (Vitamin D3) Past Med/Surg History Problem List (Updated 05/29/24 @ 09:48 by Klaus Segundo PA-C) Abdominal pain, RLQ (Acute) Acute appendicitis (Acute) No pertinent past medical history Medical History No pertinent past medical history Social History Smoking Status: Never smoker Preferred Language: Danish Feels Safe at Home: Yes Physical Exam Constitutional: WD/WN, vitals as above cooperative and comfortable; no acute distress and not ill appearing Respiratory: normal respiratory effort, lungs clear to auscultation Cardiovascular: RRR, no murmur, no edema Gastrointestinal (Abdomen): Inspection/Auscultation: abdomen normal to inspection; abdomen not distended Percussion/Palpation: + abdomen tender (RLQ positive McBurney's point) and abdomen soft; no guarding, abdomen not rigid and abdomen not firm Skin: no rashes, warm and dry Psychiatric: A+Ox3, euthymic affect Results & Data Results & Data Vital Signs (Past 12 Hours) Vital Signs Temp Pulse Resp BP Pulse Ox O2 Del Method 05/29/24 07:39 37.3 C 105 H 18 170/105 H 93 Room Air Laboratory Results 05/29/24 05/29/24 Range/Units 08:19 08:14 WBC 12.88 H (4.8-10.8) K/ul RBC 5.86 (4.70-6.10) M/uL Hgb 16.5 (14.0-18.0) g/dl Hct 47.1 (42.0-52.0) % MCV 80.4 (80.0-100.0) fL MCH 28.2 (25.0-34.0) pg MCHC 35.0 (32.0-36.0) g/dL RDW Std Deviation 34.6 L (36.4-46.3) fL RDW Coeff of Soha 11.9 (11.5-14.5) % Plt Count 284 (130-400) K/uL MPV 9.4 (9.4-12.4) fL Immature Gran % (Auto) 0.5 % Neut % (Auto) 80.5 % Lymph % (Auto) 10.6 % [place] % (Auto) 7.0 % Eos % (Auto) 0.9 % Baso % (Auto) 0.5 % Neut # (Auto) 10.38 H (1.40-6.50) K/uL Lymph # (Auto) 1.36 (1.20-3.40) K/uL [place]once # (Auto) 0.90 H (0.11-0.59) K/uL Eos # (Auto) 0.12 (0.00-0.50) K/uL Baso # (Auto) 0.06 (0.00-0.20) K/uL Immature Gran # (Auto) 0.06 (0.01-0.20) K/uL Sodium 138 (136-145) mmol/L Potassium 4.1 (3.5-5.1) mmol/L Chloride 105 (98-107) mmol/L Carbon Dioxide 27 (21-32) mmol/L Anion Gap 6 (3-11) BUN 13 (6-23) mg/dl Creatinine 0.94 (0.6-1.4) mg/dl Est Cr Clr Drug Dosing 139.1 ml/min eGFR 101.25 BUN/Creatinine Ratio 13.8 (10-20) Glucose 103 H (70-99(Fasting)) mg/dl Calcium 9.3 (8.6-10.3) mg/dl Total Bilirubin 1.9 H (0.2-1.0) mg/dl AST 19 (13-39) U/L ALT 25 (7-52) U/L Alkaline Phosphatase 80 (34-104) U/L Total Protein 7.6 (6.0-8.3) gm/dl Albumin 4.3 (3.4-5.0) gm/dl Globulin 3.3 (2.5-4.0) gm/dl Albumin/Globulin Ratio 1.3 (0.9-2) Lipase 27 (11-82) U/L Urine Color Yellow Urine Appearance Clear (Clear) Urine pH 6.5 (4.5-7.5) Ur Specific [place] 1.021 (1.000-1.030) Urine Protein Negative (Negative) Urine Glucose (UA) Negative (Negative) Urine Ketones Negative (Negative) Urine Blood Negative (Negative) Urine Nitrite Negative (Negative) Urine Bilirubin Negative (Negative) Urine Urobilinogen Negative (Negative) Ur Leukocyte Esterase Negative (Negative) Diagnostic Findings CT OF THE ABDOMEN AND PELVIS WITH CONTRAST CLINICAL HISTORY: Right lower quadrant abdominal pain. COMPARISON STUDY: None. TECHNIQUE: Following IV administration of 94 mL of Optiray, axial images of the abdomen and pelvis were obtained from the lung bases to the proximal femurs. Images were reviewed in the axial, sagittal, and coronal planes. IV contrast was administered without complication. Automated exposure control was utilized for the study. A dose lowering technique was utilized adhering to the principles of ALARA. CT DOSE: 1605.89 mGy.cm FINDINGS: Lung bases are unremarkable. No pneumatosis, free air or portal venous gas is present. Liver, spleen, adrenal glands, kidneys and pancreas are normal. There is no biliary or pancreatic ductal dilatation. There is no hydronephrosis. There is no evidence for a bowel obstruction. The mid to distal appendix is dilated, measuring 1 cm in caliber. There is appendiceal wall thickening with mild periappendiceal stranding. No free air or abscess. No additional sites of inflammation are identified. There is no lymphadenopathy. Major vasculature is patent. There are no fluid collections. IMPRESSION: Findings suggest acute appendicitis. Dilated appendix with appendiceal wall thickening and mild periappendiceal inflammation. No free air or abscess. ACT 112: Negative or not required by law. Electronically signed by: Byron Kuhn M.D. 05/29/2024 9:23 AM Code Status & VTE Plan VTE Prophylaxis Plan VTE Prophylaxis will be ordered: Yes
--- NOTE | 2024-05-29 11:04 | Anesthesiology Consultation ---
Date of Service May 29, 2024 Assessment & Plan Chart Review Chart Review: Acceptable Risk for Surgery and Patient NOT seen in Pre Admission Testing Consults Requested none ASA [id number] Proposed Anesthesia Anesthesia Type: General History Surgery Operation Date: 05/29/24 14:40 Proposed Procedures p Laparoscopic Appendectomy - Mayo Welch MD Height/Weight Height: 6 ft 2 in Weight: 127 kg Allergies Allergy/AdvReac Type Severity Reaction Status Date / Time No Known Allergies Allergy Unverified 05/29/24 09:35 Medications Home Medications Medication Instructions Recorded Confirmed Last Taken cholecalciferol (vitamin D3) 25 25 mcg PO DAILY 05/29/24 05/29/24 05/28/24 mcg (1,000 unit) tablet (Vitamin D3) Past Medical History obese ? CAROL Exercise / Class Metabolic Activity II 4-5 Yardwork/Stairs/Walk up hill Past Anesthesia History No Hx of Anesthesia Complications and No Family Hx of Anesthesia Complications History of PONV No Hx of PONV and No Hx of Motion Sickness Social History Smoking Status: Never smoker Physical Exam Vital Signs Last Vital Signs Temp 37.3 C 05/29/24 07:39 Pulse 105 H 05/29/24 07:39 Resp 18 05/29/24 07:39 BP 170/105 H 05/29/24 07:39 Pulse Ox 93 05/29/24 07:39 O2 Del Method Room Air 05/29/24 07:39 Testing Laboratory Results 05/29/24 08:19 05/29/24 08:19 Urine Color Yellow 05/29/24 08:14 Urine Appearance Clear (Clear) 05/29/24 08:14 Urine pH 6.5 (4.5-7.5) 05/29/24 08:14 Ur Specific [place] 1.021 (1.000-1.030) 05/29/24 08:14 Urine Protein Negative (Negative) 05/29/24 08:14 Urine Glucose (UA) Negative (Negative) 05/29/24 08:14 Urine Ketones Negative (Negative) 05/29/24 08:14 Urine Nitrite Negative (Negative) 05/29/24 08:14 Ur Leukocyte Esterase Negative (Negative) 05/29/24 08:14
[2024-05-29] MEDS: SODIUM CHLORIDE 0.9% 1,000 ML IV ONE (11:06)
[2024-05-29] MEDS ORDERED: fentaNYL citrate PF 100 MCG/2 ML VIAL ONE (11:54)
[2024-05-29] MEDS ORDERED: MIDAZOLAM HCL 1 MG/ML 2ML VIAL ONE (11:54)
[2024-05-29] MEDS ORDERED: ROCURONIUM BROMIDE 10 MG/ML 5 ML VIAL IV ONE (11:54)
[2024-05-29] MEDS ORDERED: PROPOFOL IV EMULSION 10 MG/ML 20 ML VIAL IV ONE ×2 (11:54→12:36)
[2024-05-29] MEDS ORDERED: LIDOCAINE 2% 2 ML VIAL/AMP(20MG/ML) INFIL ONE (11:54)
[2024-05-29] MEDS ORDERED: NALOXONE HCL 0.4 MG/1 ML VIAL/CARP IV PRN (11:55)
[2024-05-29] MEDS ORDERED: HYDROmorphone INJ 1 MG/ML SYRINGE IV PRN (11:55)
[2024-05-29] MEDS ORDERED: ONDANSETRON INJ 2 MG/ML 2 ML VIAL IV PRN ×2 (11:55→15:11)
[2024-05-29] MEDS ORDERED: fentaNYL citrate PF 100 MCG/2 ML VIAL IV PRN (11:55)
[2024-05-29] MEDS ORDERED: LABETALOL HCL IV 5 MG/ML 20ML IV PRN (11:55)
[2024-05-29] MEDS ORDERED: ePHEDrine sulfate 50 MG/ML AMP IV PRN (11:55)
[2024-05-29] MEDS ORDERED: FLUMAZENIL 0.1 MG/1 ML 10 ML VIAL IV PRN (11:55)
[2024-05-29] MEDS ORDERED: ATROPINE SULFATE 0.1 MG/ML 10ML SYR IV PRN (11:55)
[2024-05-29] MEDS ORDERED: PROMETHAZINE HCL 6.25 MG in SODIUM CHLORIDE 0.9% 50 ML IV PRN (11:55)
[2024-05-29] MEDS ORDERED: ONDANSETRON INJ 2 MG/ML 2 ML VIAL ONE (11:58)
[2024-05-29] MEDS ORDERED: Nursing to Pharmacy Communication SCH (12:00)
[2024-05-29] MEDS: LR 15ML/HR IV SCH (12:08)
[2024-05-29] MEDS: cefOXitin 2,000 MG in DEXTROSE 5 % MINI-B 50 ML IV SCH ×2 (12:12→17:40)
[2024-05-29] MEDS ORDERED: DEXAMETHASONE SOD INJ 4 MG/ML VIAL ONE (12:27)
[2024-05-29] MEDS ORDERED: diphenhydrAMINE 50 MG/ML VIAL ONE (12:36)
[2024-05-29] MEDS ORDERED: KETOROLAC 30 MG/ML VIAL ONE (12:36)
[2024-05-29] MEDS ORDERED: SUGAMMADEX SODIUM 200 MG/2 ML VIAL IV ONE (12:38)
[2024-05-29] MEDS: BUPIVACAINE/EPINEPHRINE 0.5% MPF 1:200,000 30 ML VIAL ONE (12:47)
--- NOTE | 2024-05-29 12:55 | Operative Report ---
Post Operative Report Pre & Post Diagnosis Operation Date: 05/29/24 14:40 Pre-Op Diagnosis: Acute appendicitis Post-Op Diagnosis: Acute appendicitis I identified the patient and participated in the time-out.: Yes Procedure Operation Date: 05/29/24 14:40 Actual Procedures p Laparoscopic Appendectomy(Not Applicable) - Mayo Welch MD Surgeon Mayo Welch MD Center Punch Operator Kasandra Smalls PA-C Estimated Blood Loss 15 Findings Consistent with Post-Op Diagnosis Specimens Appendix to pathology Drains None Anesthesia Type General Complications none Disposition Accompanied Patient To Recovery: No Disposition: Recovery Room Indications This is a 44-year-old male who was admitted through the ED. He underwent went a workup for abdominal pain which showed acute appendicitis. We talked in detail at this and recommended a laparoscopic appendectomy. He understands all the risks and wishes to proceed. Description of Procedure The patient was taken to the OR and underwent excellent general anesthesia. Their abdomen was prepped and draped in normal sterile fashion. A transverse supraumbilical incision was made, towel clamps were used to create tension on the abdominal wall as a Veress needle was inserted gently into the peritoneal cavity. Good pneumoperitoneum was achieved to about 15 mmHg pressure. Once this was done, a visualized 11 port was placed in the supraumbilical position. A 12 mm left lower quadrant port , a 5mm suprapubic port , and a 5mm right upper quadrant port were all placed in normal fashion. Patient was then placed in head down and rolled to the left. A good diagnostic lap was performed. They had obvious acute appendicitis. The cecum was grasped with an atraumatic grasper. A grasper was then was then used to grasp the tip of the appendix. The mesoappendix was splayed open and a harmonic scalpel was used to take down the mesoappendix. The base of the appendix was identified and an Endo ZOIE stapler was used to transect the appendix at its base. A endobag was then inserted through the left lower quadrant port and the appendix was placed into the bag, The bag was removed through the left lower quadrant port. The appendix was sent for pathologic evaluation. The pneumoperitoneum was re- established after the 12 mm port was replaced. Saline was then used to irrigate the abdomen. There was a staple line bleed which was controlled with a clip. No other active bleeding nor any other abnormalities were noted in the abdomen. The patient was then placed back in neutral position, the ports were removed and the pneumoperitoneum decompressed. The 12mm port fascia was then closed using a 0 Vicryl. The skin was then anesthetized with 0.5% Marcaine with epinephrine local. Interrupted Vicryl is used to close the skin. Dermabond was used to reinforce the incisions. Sterile dressings were applied. The patient tolerated procedure without complications was sent to the postop recovery period of observation. They will be sent to the floor for the rest of their care. Kasandra Smalls PA-C was present and participated in the entire procedure. She was integral in skin closure, retraction, and camera manipulation. There was no qualified resident available to assist. I attest to the content of the Intraoperative Record and any orders documented therein. Any exceptions are noted below.
--- NOTE | 2024-05-29 13:53 | Anesthesiology Progress Note ---
Date of Service May 29, 2024 Anesthesia Post Procedure Vital Signs Vital Signs: Temp Pulse Pulse Pulse Resp BP BP 05/29/24 13:35 82 12 144/88 H 05/29/24 13:25 83 13 139/76 05/29/24 13:15 91 H 13 145/92 H 05/29/24 13:06 36.4 C L 94 H 17 150/81 H 05/29/24 11:32 37.3 C 90 20 173/105 H 05/29/24 11:04 83 18 148/92 H 05/29/24 07:39 37.3 C 105 H 18 170/105 H Pulse Ox O2 Del Method O2 Flow Rate 05/29/24 13:35 97 Room Air 0 05/29/24 13:25 95 Room Air 0 05/29/24 13:15 96 Oxymask 2 05/29/24 13:06 95 Room Air 05/29/24 11:32 98 Room Air 05/29/24 11:04 98 Room Air 05/29/24 07:39 93 Room Air Pain Intensity Right Lower Abdomen: Pain Intensity: 3 Transfer of Care Handoff Completed per policy Notes Mental Status: alert / awake / arousable Patient Amnestic to Procedure: Yes Nausea / Vomiting: adequately controlled Pain: adequately controlled Airway Patency, RR, SpO2: stable & adequate BP & HR: stable & adequate Hydration State: stable & adequate Anesthetic Complications: no major complications apparent
[2024-05-29] MEDS ORDERED: MoRPHine SULFATE 4 MG/ML 1 ML CARP\\VIAL IV PRN (15:11)
[2024-05-29] MEDS ORDERED: PROMETHAZINE 25 MG/51 ML BAG IV PRN (15:11)
[2024-05-29] MEDS ORDERED: oxyCODONE/ACETAMINOPHEN 5mg/325mg TAB PO PRN ×2 (15:11)
[2024-05-29] MEDS ORDERED: MoRPHine SULFATE 2 MG/ML CARP IV PRN (15:11)
[2024-05-29 15:33] VITALS: RESP 16
[2024-05-29] MEDS: SODIUM CHLORIDE 0.9% 500 ML IV SCH (16:37)
[2024-05-30 07:10] VITALS: BP 154/91; PULSE 71; TEMP 97.9; O2SAT 95
--- NOTE | 2024-05-30 09:35 | Discharge Summary ---
Date of Service May 30, 2024 Admission HPI Per Admitting Provider Mr. Branch is a 44 yo male otherwise healthy who presented to ED with complaint of right lower abdominal pain that started around 5:30 pm and continued to increase in severity with associated nauea but no vomiting, fevers, chills, chest pain or shortness of breath. No changes in bowel habits, urinating without difficulty. [place] it was some gas but didnt improve and was unable to sleep due to pain. Movement made pain worse. No prior history of similar pain. No abdominal surgeries. Admission Exam Per Admitting Provider WD/WN, vitals as above cooperative and comfortable; no acute distress and not ill appearing Respiratory: normal respiratory effort, lungs clear to auscultation Cardiovascular: RRR, no murmur, no edema Gastrointestinal (Abdomen): Inspection/Auscultation: abdomen normal to inspection; abdomen not distended Percussion/Palpation: + abdomen tender (RLQ positive McBurney's point) and abdomen soft; no guarding, abdomen not rigid and abdomen not firm Skin: no rashes, warm and dry Psychiatric: A+Ox3, euthymic affect Principal Diagnosis appendicitis Discharge Exam Constitutional WD/WN, vitals as above Respiratory normal respiratory effort, lungs clear to auscultation Cardiovascular RRR, no murmur, no edema Gastrointestinal (Abdomen) Inspection/Auscultation: abdomen normal to inspection, normal bowel sounds and + abdominal surgical incision; abdomen not distended Percussion/Palpation: + abdomen tender and abdomen soft; no guarding and abdomen not rigid Skin no rashes, warm and dry Discharge Data Allergies Allergy/AdvReac Type Severity Reaction Status Date / Time No Known Allergies Allergy Unverified 05/29/24 09:35 Procedures Performed Operation Date: 05/29/24 14:40 Actual Procedures p Laparoscopic Appendectomy(Not Applicable) - Mayo Welch MD Ordered Studies 05/29/24 07:50 CT abd pelvis IV con only Stat Hospital Course (1) Acute appendicitis: Patient admitted from ED with acute appendicitis. He was taken to OR for uncomplicated lap appendectomy. He did well with diet and activity and disch arged to home on POD#1. Total Time Total Time Spent Total Time Spent (In Minutes): 15 Total Time Includes: Discharge Planning Discharge Plan Discharge Items Patient Disposition: Home - Self-Care Reason For Visit: APPENDICITIS Discharge Diagnosis: Acute appendicitis Condition on Discharge: Good Activity: Per Instructions section Non-emergency contact: Primary Care Provider and Surgeon Call non-emergency contact if: you have any medication questions, your pain is not controlled, your pain is worsening, your pain is concerning for you, you have a fever, your temperature is above 101, your wound has increased redness, your wound has increased drainage and your wound pain has increased Follow-up/Referrals: Kasandra Smalls PA-C [Physician Pile Operator] - Shan Lamar MD [Primary Care Provider] - Diet: Regular Addtl Attending Provider Instructions: Post-Surgical ~Discharge Instructions Activity Recommendations: - lifting limitation: (20 pounds for 3-4 weeks), - exercise/sex/sports limit: (nonstrenuous for 2 weeks), - driving or machine use limit: (none for 1 week or until pain free and no longer taking narcotic pain medication), - Shower/bathe limit: (may shower , no submerging incisions underwater for 2 weeks) Diet: - Resume previous diet SPECIAL CARE INSTRUCTIONS: - May shower.. Let water run over area and pat dry. - Leave surgical glue on incisions, this will fall off on its own. Do not pick at the glue as this can cause infection. - Call the surgeon's office with any questions or concerns - - (ex. temperature higher than 101 degrees F, excessive bleeding or pain). MEDICATIONS: - Resume previous medications unless instructed otherwise by your surgeon. - May alternate extra strength Tylenol and Ibuprofen as needed for mild to moderate pain -650 mg Tylenol every 6 hours as needed - Ibuprofen 600 mg every 6 hours as needed (take with food) - Percocet 1 every 6 hours, as needed for moderate to severe pain - Recommend daily stool softener (Colace) while taking narcotic pain medicaiton to prevent constipation or straining. Drink plenty of water daily. FOLLOW UP VISIT: - If not already scheduled, please call the office to schedule a two week follow-up appointment. Office number Pending Studies at Discharge: No Stand-Alone Forms: My [employer], Smoking Cessation Medications and DC Order Prescriptions: New oxycodone-acetaminophen 5-325 mg tablet 1 tab PO Q6H PRN (Reason: pain) Qty: 10 0RF Continued cholecalciferol (vitamin D3) [Vitamin D3] 25 mcg (1,000 unit) Tablet 25 mcg PO DAILY Discharge Orders: Discharge Order (Routine); Ordered 05/30/24 Ordered By: Mayo Welch Admission Data Admit Date/Time: 05/29/24 12:59 Attending Provider: Mayo Welch Admit Provider: Mayo Welch Primary Care Provider: Shan Lamar
== END 2024-05-30 11:30 | disposition home or self-care (01) ==
LOC: 3W 07:28 → ED 07:28 → 3W 11:14
DX: K35.80 Unspecified acute appendicitis; E66.9 Obesity, unspecified; Z68.35 Body mass index [BMI] 35.0-35.9, adult; D72.829 Elevated white blood cell count, unspecified; Z79.899 Other long term (current) drug therapy